=== PATIENT | female | born 1980 | race Caucasian/White ===

== ENCOUNTER 2017-11-07 10:39 | Outpatient (CLI) | payer BC ==
--- NOTE | 2017-11-07 17:05 | MRI ---
MRI LUMBAR SPINE WITHOUT IV CONTRAST: 11/07/17 HISTORY: Lumbar radiculopathy. Patient states sciatic type pain with pain extending down right leg for two yea rs. COMPARISON: 02/15/08. FINDINGS: The retroperitoneal structures demonstrate a normal MRI appearance. There is slight nonspecific heter ogeneity of the bone marrow. The conus medullaris is normal in appearance and terminates at the L1-2 level. L2-3 level: There is no disc bulge or disc herniation. The central spinal canal and neural foramina a re patent. L2-3 level: There is a right foraminal disc protrusion which results in mild narrowing of the right n eural foramen. The left neural foramen and central spinal canal are patent. L3-4 level: There is slight retrolisthesis of L3 on L4 which is a stable finding. There is a mild bro ad based disc osteophyte complex. Findings result in mild narrowing of the central spinal canal with flattening of the anterior aspect of the thecal sac. There is mild bilateral neural foraminal narrowi ng. The previously seen large central and right paracentral disc extrusion on the prior exam is no lo nger seen. L4-5 level: There is a mild broad based disc osteophyte complex with small central disc protrusion. T his is overall similar to the prior study and there is mild narrowing of the central spinal canal wit h mass effect in the anterior aspect of the thecal sac. There is mild right sided neural foraminal na rrowing not significantly changed from prior exam. The left neural foramen is patent. L5-S1 level: There is a mild broad based disc bulge with a central disc protrusion. The disc bulge/br oad based disc protrusion does appear to contact the traversing bilateral S1 nerve roots, greater on the left with suggestion of slight mass effect on the traversing left S1 nerve root. This was not pre sent on prior exam. Thecal sac at this level is patent. Neural foramina are also patent. 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 Retrop eritoneal structures have a normal MRI appearance. IMPRESSION: 1. Interval development of a broad based disc bulge and associated disc protrusion which does ap pear to contact the bilateral traversing S1 nerve roots with suggestion of slight deformity of the le ft S1 nerve root. 2. Persistent slight retrolisthesis of L3 on L4 and L4 on L5 with disc osteophyte complexes pres ent at these levels with findings overall stable at the L4-5 level, but there has been interval impro vement in the central and right paracentral disc protrusion/extrusion at the L3-4 level compared to t he prior study. POS: [facility]
== END 2017-11-07 10:40 | disposition home or self-care (01) ==
LOC: TBSIIMAG 10:39
PROVIDERS: ATTEND Neurological Surgery
DX: M51.16 Intervertebral disc disorders with radiculopathy, lumbar region (principal); M43.16 Spondylolisthesis, lumbar region; M25.78 Osteophyte, vertebrae
CPT/HCPCS: 72148

== ENCOUNTER 2017-11-28 10:11 | Outpatient (CLI) | payer BC ==
[2017-11-28 11:01] LABS: Hemoglobin 13.8 g/dL (12.0-16.0); Mean Corpuscular HGB CONC 34.4 g/dL (32.0-36.0); Mean Corpuscular Hemoglobin 31.7 pg (27.0-31.0); Mean Platelet Volume 6.8 fL (7.4-10.4); Platelet Count 260 thou/uL (130-400); RBC Distribution Width 11.6 % (11.5-14.5); Red Blood Cell (RBC) Count 4.36 mill/uL (4.20-5.40); White Blood Cell (WBC) Count 11.6 thou/uL (4.8-10.8)
[2017-11-28 11:23] LABS: Anion Gap 13 mmol/L (10-20); BUN (Urea Nitrogen) 7 mg/dL (7.0-18.7); Calc. Creatinine Clearance 0 mL/min (70-130); Calcium 9.3 mg/dL (7.8-10.44); Carbon Dioxide 23 mmol/L (22-29); Chloride 106 mmol/L (98-107); Estimated GFR-MDRD 85; Glucose 100 mg/dL (70-105); Potassium 4.1 mmol/L (3.5-5.1); Sodium 138 mmol/L (136-145)
--- NOTE | 2017-11-28 16:23 | EKG ---
Test Reason : Blood Pressure : / mmHG Vent. Rate : 097 BPM Atrial Rate : 097 BPM P-R Int : 136 ms QRS Dur : 094 ms QT Int : 368 ms P-R-T Axes : 078 082 038 degrees QTc Int : 467 ms Normal sinus rhythm ST elevation, consider early repolarization Borderline ECG Confirmed by RAFITA AGOSTO ([id number]) on 11/28/2017 4:22:34 PM Referred By: MICK Confirmed By:RAFITA AGOSTO
== END 2017-11-28 10:12 | disposition home or self-care (01) ==
LOC: LABBT 10:11
PROVIDERS: ATTEND Neurological Surgery
DX: Z01.818 Encounter for other preprocedural examination (principal); M54.16 Radiculopathy, lumbar region
CPT/HCPCS: 80048; 85027; 93005; 93010

== ENCOUNTER 2017-12-05 07:04 | Day surgery (SDC) | payer BC ==
[2017-11-28 10:57] VITALS: BMI 44.9
[2017-12-05] MEDS ORDERED: CEFAZOLIN/Water 2 GM/20 ML SYRINGE ONE (08:03)
[2017-12-05] MEDS ORDERED: Midazolam HCl 2 mg/2 ml Vial ONE ×2 (08:03→10:52)
[2017-12-05] MEDS ORDERED: Fentanyl 100 MCG/2 ML VIAL ONE ×7 (08:19→11:43)
[2017-12-05] MEDS ORDERED: HYDROmorphone 0.5 MG/0.5 ML SYRINGE ONE (10:45)
--- NOTE | 2017-12-05 11:55 | OP ---
DATE OF PROCEDURE: 12/05/2017 SURGEON: Reyes Bassett M.D. LINE MAINTENANCE SUPERVISOR: Calvin Tracy PROCEDURE: Left L5-S1 microdiscectomy, operating microscope. PROCEDURE IN DETAIL: The patient was brought to the operating room and intubated. She was rolled in the prone position on gel-filled chest rolls. Incision made exposing L5 and S1 on the left and our level was confirmed by x-ray. We performed left L5-S1 hemilaminectomy, removed the yellow ligament, identified the left S1 nerve root and left S1 pedicle. The nerve root was quite lateral and the best access to the disc space was through the axilla of the nerve root. The nerve root itself was quite involved with the disk material. The disc itself was incised and debrided in multiple fragments usin g the operating microscope and microdissection techniques. A complete decompression of left S1 was a chieved. It was then extensively irrigated, immaculate hemostasis was secured. Vancomycin powder wa s applied and the wound was closed in anatomic layers.
[2017-12-05] MEDS ORDERED: HYDROcodone/Acetaminophen 10/325 mg Tablet ONE ×2 (13:32)
[2017-12-05] MEDS ORDERED: PROPOFOL 200 MG/20 ML VIAL ONE (15:01)
[2017-12-05] MEDS ORDERED: Glycopyrrolate 0.2 MG/ML 5 ML SYRINGE ONE (15:01)
[2017-12-05] MEDS ORDERED: Lidocaine 1% PF 5 ML VIAL ONE (15:01)
[2017-12-05] MEDS ORDERED: Dexamethasone 20 MG/5 ML VIAL ONE (15:01)
== END 2017-12-05 13:48 | disposition home or self-care (01) ==
LOC: SDC 07:04
PROVIDERS: ATTEND Neurological Surgery
PROC: 01NB0ZZ Release Lumbar Nerve, Open Approach (ICD-10-PCS; principal; 2017-12-05)
DX: M54.17 Radiculopathy, lumbosacral region (principal); I10 Essential (primary) hypertension; Z79.899 Other long term (current) drug therapy
CPT/HCPCS: 76001; 96374; J0131; J1100; J1170; J2001; J2250; J2704; J3010; J3370

== ENCOUNTER 2018-02-28 13:11 | Outpatient (CLI) | payer BC ==
--- NOTE | 2018-02-28 18:47 | MRI ---
LUMBAR SPINE MRI WITH AND WITHOUT CONTRAST: 02/28/18 CLINICAL HISTORY: Pseudomeningocele. History of prior lumbar spine surgery with pain. Reference made to prior noncontrast lumbar spine 11/07/17. FINDINGS: Evidence of interval posterior decompression of the L5-S1 region. There is a left laminectomy of L5 w ith a traversing fluid echogenicity collection which emanates from the laminectomy site, traversing p osteriorly with a thin paraspinous component and a larger posterior paraspinous complex fluid collect ion with internal thin septations. There is peripheral enhancement as well as thin linear internal cu rvilinear enhancement related to septations. This is most consistent with a pseudomeningocele. The po ssibility of superimposed infection is not excluded, given the complexity and enhancement. There is s urrounding intramuscular edema/enhancement compatible with associated myositis. Marrow edema of poste rior elements of L4 through S1 is demonstrated and could relate to reactive edema or possibly edema f rom developing osteomyelitis which cannot be excluded on the basis of this exam. There is no MR evide nce of acute discitis. 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 The conus medullaris termin ates at the L1-2 level. No compression deformity. There is degenerative signal loss of the L3-4, L4-5 , and L5-S1 disc spaces. There is no high grade central canal stenosis of L1-2, or L2-3 level. At these levels, there is no hi gh grade foraminal compromise. L3-4: There is a right asymmetric broad based disc osteophyte complex with mild to moderate central c anal stenosis. There is also potential for impingement upon the traversing right L4 nerve root. There is congenital AP diameter narrowing of each neural foramen which is accentuated by the above disc os teophyte complex with mild to moderate narrowing bilaterally. L4-5: Moderate central canal stenosis is present due to disc osteophyte complex superimposed upon con genital AP diameter narrowing. There is moderate narrowing of each neural foramen. Crowding of the ri ght L5 nerve root and impingement of the left L5 nerve root present. L5-S1: There is a large left foraminal zone disc protrusion, with adjacent fibrosis, with direct impi ngement upon the left nerve root. This measures approximately 8 mm transverse. IMPRESSION: 1. 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 there is peripheral enhancement as well as surrounding inflammatory change of the adjacent posterior elements and paraspinous musculature and therefore the possibility of superimposed infectious process not exc luded. Recommend clinical correlation and as necessary imaging followup. 2. Multilevel degenerative change superimposed upon congenital narrowing of the AP diameter of t he vertebral canal. There is a prominent sized left foraminal zone disc protrusion, and adjacent fibr osis at the L5-S1 level with impingement of the left nerve root. POS: [facility]
== END 2018-02-28 13:12 | disposition home or self-care (01) ==
LOC: TBSIIMAG 13:11
PROVIDERS: ATTEND Neurological Surgery
DX: G96.19 Other disorders of meninges, not elsewhere classified (principal); M51.27 Other intervertebral disc displacement, lumbosacral region; M47.896 Other spondylosis, lumbar region; Q06.9 Congenital malformation of spinal cord, unspecified
CPT/HCPCS: 72158

== ENCOUNTER 2018-07-22 09:38 | Outpatient (CLI) | payer BC ==
--- NOTE | 2018-07-22 13:39 | MRI ---
MRI LUMBAR SPINE WITH AND WITHOUT CONTRAST: Date: 07/22/18 Multiplanar, multisequential imaging of the lumbar spine obtained. INDICATION: Lumbar radiculopathy. Prior diskectomy. Patient states microdiskectomy 12/05/17 and spinal fluid drai nage in March 2018. Comparison made to MRI of lumbar spine dated 02/28/18. That exam revealed a large posterior fluid col lection at the L5-S1 level consistent with pseudomeningocele. There was peripheral enhancement associ ated with that fluid collection noted at that time. FINDINGS: On today's exam, there is no fluid signal collection present. There is diffuse abnormal signal in the posterior tissues at L5-S1 which involve the posterior paraspinous tissues and posterior adipose tis rajendra. This large area of signal abnormality exhibits diffuse enhancement on post Gadolinium imaging. O n post Gadolinium sagittal images, this area of abnormal enhancement measures 6.0 cm craniocaudal and extends from the L3-4 disc level to the S1-S2 disc level involving the posterior soft tissues. Lumbar vertebra maintain height and alignment, and exhibit normal signal. Disc bulge at L3-4 is seen with facet hypertrophy resulting in moderate central canal stenosis, sligh tly more prominent than on 02/18/18. At L4-5, there is diffuse disc bulge flattening the thecal sac. Facet and ligamentous hypertrophy. Mo derate to severe central canal stenosis. At L5-S1, annular fissure with broad based bulge centrally and to the left. Facet hypertrophy. Congen itally small thecal sac, but mild central canal stenosis. The asymmetric bulge to the left displaces the traversing S1 nerve root. IMPRESSION: 1. Moderate to severe central canal stenosis at L3-4 and L4-5 as described above. 2. At L5-S1, asymmetric bulge centrally and to the left displacing the traversing left S1 nerve root with moderate central canal stenosis. 3. Diffuse enhancement in the posterior soft tissues centered at L5-S1. The pseudomeningocele is no longer present. Diffuse enhancement may be on the basis of postoperative change. Inflammatory process cannot be excluded by MRI. There is no evidence of pseudomeningocele, abscess, or other fluid collec tion. POS: [facility]
== END 2018-07-22 09:39 | disposition home or self-care (01) ==
LOC: SCSMRI 09:38
PROVIDERS: ATTEND Neurological Surgery
DX: M54.16 Radiculopathy, lumbar region (principal); M51.9 Unspecified thoracic, thoracolumbar and lumbosacral intervertebral disc disorder; M48.061 Spinal stenosis, lumbar region without neurogenic claudication; M48.07 Spinal stenosis, lumbosacral region
CPT/HCPCS: 72158

== ENCOUNTER 2018-12-12 15:00 | Outpatient (CLI) | payer BC | END 2018-12-12 15:01 | disposition home or self-care (01) | LOC: SLEEPLAB 15:00 | PROVIDERS: ATTEND Family Medicine | DX: G47.9 Sleep disorder, unspecified (principal); R53.83 Other fatigue; G31.84 Mild cognitive impairment of uncertain or unknown etiology; K21.9 Gastro-esophageal reflux disease without esophagitis; R06.83 Snoring; F41.9 Anxiety disorder, unspecified; R35.1 Nocturia; I10 Essential (primary) hypertension; E66.9 Obesity, unspecified; G47.33 Obstructive sleep apnea (adult) (pediatric) | CPT/HCPCS: 95806 ==

== ENCOUNTER 2019-01-13 19:30 | Outpatient (CLI) | payer BC | END 2019-01-13 19:31 | disposition home or self-care (01) | LOC: SLEEPLAB 19:30 | PROVIDERS: ATTEND Family Medicine | DX: G47.9 Sleep disorder, unspecified (principal); R53.83 Other fatigue; G31.84 Mild cognitive impairment of uncertain or unknown etiology; E66.9 Obesity, unspecified; K21.9 Gastro-esophageal reflux disease without esophagitis; R06.83 Snoring; F41.9 Anxiety disorder, unspecified; R35.1 Nocturia; I10 Essential (primary) hypertension; G47.33 Obstructive sleep apnea (adult) (pediatric) | CPT/HCPCS: 95811 ==

== ENCOUNTER 2020-11-09 09:36 | Outpatient (CLI) | payer BC ==
[2020-11-09 10:22] LABS: Hemoglobin 13.1 g/dL (12.0-15.5); Mean Corpuscular HGB CONC 33.5 g/dL (32.0-36.0); Mean Corpuscular Hemoglobin 29.4 pg (27.0-33.0); Mean Corpuscular Volume 87.9 fl (81.6-98.3); Mean Platelet Volume 10.1 fl (7.4-10.4); Platelet Count 259 10x3/uL (150-450); RBC Distribution Width 12.7 % (11.5-14.5); Red Blood Cell (RBC) Count 4.45 10x6/uL (3.90-5.03); White Blood Cell (WBC) Count 8.4 10x3/uL (3.5-10.5)
[2020-11-09 10:41] LABS: ALT (SGPT) 10 U/L (8-55); AST (SGOT) 9 U/L (5-34); Albumin 3.9 g/dL (3.5-5.0); Alkaline Phosphatase 124 U/L (40-110); Anion Gap 13 mmol/L (10-20); BUN (Urea Nitrogen) 9 mg/dL (7.0-18.7); Bilirubin, Direct 0.1 mg/dL (0.1-0.3); Bilirubin, Total 0.2 mg/dL (0.2-1.2); Calc. Creatinine Clearance 0 mL/min (70-130); Calcium 8.6 mg/dL (7.8-10.44); Carbon Dioxide 24 mmol/L (22-29); Chloride 107 mmol/L (98-107); Glucose 125 mg/dL (70-105); Potassium 4.1 mmol/L (3.5-5.1); Protein, Total 6.5 g/dL (6.0-8.3); Sodium 140 mmol/L (136-145)
[2020-11-10 02:03] LABS: SARS-CoV-2 PCR by NAA Not Detected (NotDetected)
== END 2020-11-09 09:37 | disposition home or self-care (01) ==
LOC: LABBT 09:36
PROVIDERS: ATTEND Surgery
DX: Z01.818 Encounter for other preprocedural examination (principal); Z20.822 Contact with and (suspected) exposure to COVID-19; K80.20 Calculus of gallbladder without cholecystitis without obstruction
CPT/HCPCS: 80048; 80076; 85027; 87635; 93005; 93010; U0003; U0005

== ENCOUNTER 2020-11-12 10:29 | Day surgery (SDC) | payer BC ==
[2020-11-11 12:11] VITALS: BMI 47.4
[2020-11-12] MEDS ORDERED: SUGAMMADEX SODIUM 500 MG/5 ML VIAL ONE (12:53)
[2020-11-12] MEDS ORDERED: Fentanyl 100 MCG/2 ML VIAL ONE ×3 (12:53→14:36)
[2020-11-12] MEDS ORDERED: Midazolam HCl 2 mg/2 ml Vial ONE (12:53)
[2020-11-12] MEDS ORDERED: Lidocaine 2% w/Epinephrine 1:200K 20 ML VIAL ONE (12:54)
[2020-11-12] MEDS ORDERED: Bupivacaine 0.25% HCL 30 ML VIAL ONE (12:54)
[2020-11-12] MEDS ORDERED: Ketorolac Tromethamine 30 MG/ML VIAL ONE (13:10)
[2020-11-12] MEDS ORDERED: Ondansetron PF 4 MG/2 ML Vial ONE (13:10)
[2020-11-12] MEDS ORDERED: Lidocaine 1% PF 5 ML VIAL ONE (13:10)
[2020-11-12] MEDS ORDERED: PROPOFOL 200 MG/20 ML VIAL ONE (13:10)
[2020-11-12] MEDS ORDERED: Rocuronium Bromide 10 MG/ML (10ML VIAL) ONE (13:10)
[2020-11-12] MEDS ORDERED: Dexamethasone 20 MG/5 ML VIAL ONE (13:10)
[2020-11-12] MEDS ORDERED: Iothalamate Meglumine 60% 50 ML VIAL FS ONE (13:21)
[2020-11-12] MEDS ORDERED: HYDROcodone/Acetaminophen 5/325 mg Tablet ONE (14:39)
== END 2020-11-12 16:05 | disposition home or self-care (01) ==
LOC: SDC 10:29
PROVIDERS: ATTEND Surgery
PROC: BF121ZZ Fluoroscopy of Gallbladder using Low Osmolar Contrast (ICD-10-PCS; principal; 2020-11-12)
PROC: 0FT44ZZ Resection of Gallbladder, Percutaneous Endoscopic Approach (ICD-10-PCS; principal; 2020-11-12)
DX: K80.10 Calculus of gallbladder with chronic cholecystitis without obstruction (principal); Z79.899 Other long term (current) drug therapy; Z95.5 Presence of coronary angioplasty implant and graft
CPT/HCPCS: 47532; 88304; J0690; J1100; J1885; J2250; J2405; J2704; J3010; Q9961; S0020

== ENCOUNTER 2021-04-12 05:36 | Day surgery (SDC) | payer BC ==
[2021-04-08 10:30] VITALS: BMI 46.5
[2021-04-12] MEDS ORDERED: Fentanyl 100 MCG/2 ML VIAL ONE ×5 (06:40→09:54)
[2021-04-12] MEDS ORDERED: Midazolam HCl 2 mg/2 ml Vial ONE (06:40)
[2021-04-12] MEDS ORDERED: Lidocaine 1% (PF) 30 ML VIAL ONE (06:40)
[2021-04-12] MEDS ORDERED: Ketorolac Tromethamine 30 MG/ML VIAL ONE (07:24)
[2021-04-12] MEDS ORDERED: PROPOFOL 200 MG/20 ML VIAL ONE (07:24)
[2021-04-12] MEDS ORDERED: Lidocaine 1% PF 5 ML VIAL ONE (07:24)
[2021-04-12] MEDS ORDERED: PHENYLEPHRINE-NS 100 MCG/ML 10 ML SYRINGE ONE (07:24)
[2021-04-12] MEDS ORDERED: Ropivacaine 0.5% HCl/PF (150 MG/30 ML VIAL) ONE (07:24)
[2021-04-12] MEDS ORDERED: Dexamethasone 20 MG/5 ML VIAL ONE (07:24)
[2021-04-12] MEDS ORDERED: Ondansetron PF 4 MG/2 ML Vial ONE (07:24)
[2021-04-12] MEDS ORDERED: HYDROcodone/Acetaminophen 10/325 mg Tablet PO PRN ×2 (10:45)
[2021-04-12] MEDS ORDERED: Ropivacaine 0.2% 550 ML 550 ML NERVE BLCK SCH (10:45)
[2021-04-12] MEDS ORDERED: Zolpidem Tartrate 5 MG TAB PO PRN (10:45)
[2021-04-12] MEDS ORDERED: Ondansetron PF 4 MG/2 ML Vial IVP PRN (10:45)
[2021-04-12] MEDS ORDERED: Promethazine HCl 25 MG/ML VIAL IM PRN (10:45)
[2021-04-12] MEDS ORDERED: traMADol HCl 50 MG TAB PO PRN ×2 (10:45)
[2021-04-12] MEDS ORDERED: HYDROcodone/Acetaminophen 10/325 mg Tablet ONE (11:18)
== END 2021-04-12 12:15 | disposition home or self-care (01) ==
LOC: SDC 05:36
PROVIDERS: ATTEND Orthopaedic Surgery
PROC: 0QSJ04Z Reposition Right Fibula with Internal Fixation Device, Open Approach (ICD-10-PCS; principal; 2021-04-12)
PROC: 3E0T3BZ Introduction of Anesthetic Agent into Peripheral Nerves and Plexi, Percutaneous Approach (ICD-10-PCS; principal; 2021-04-12)
PROC: 0QSG04Z Reposition Right Tibia with Internal Fixation Device, Open Approach (ICD-10-PCS; principal; 2021-04-12)
DX: S82.851A Displaced trimalleolar fracture of right lower leg, initial encounter for closed fracture (principal); U07.1 COVID-19; G89.29 Other chronic pain; M54.9 Dorsalgia, unspecified; Z79.899 Other long term (current) drug therapy; Z98.1 Arthrodesis status; W19.XXXA Unspecified fall, initial encounter
CPT/HCPCS: 76000; A4306; C1713; C1769; J0690; J2001; J2250; J2795; J3010